=== PATIENT | female | born 1965 | race Caucasian/White ===

== ENCOUNTER 2016-12-10 09:23 | Observation (INO) | payer OTHER ==
[~2016-12-10] VITALS: Ht 177.8 cm; Wt 91.0 kg
[2016-12-10] VITALS (10 sets, daily range): BP systolic 121–145; BP diastolic 72–85; PULSE 79–110; RESP 16–24; TEMP 97.8–98.2; O2SAT 94–99
[~2016-12-10 09:23] MED LIST: CYMB60CA PO; HYDR-3533 PO; IBUP-232 PO; LASI20TA PO
[2016-12-10] MEDS ORDERED: FURO20TA PO (10:00)
[2016-12-10] MEDS ORDERED: SODIUM CHLORIDE 0.9% FLUSH 5 ML FLUSH IVF PRN ×2 (10:00→14:45)
[2016-12-10] MEDS ORDERED: MOBI7.5T PO (10:00)
[2016-12-10] MEDS ORDERED: TRAM50TA PO (10:00)
[2016-12-10] MEDS ORDERED: LISI-515 PO (10:00)
[2016-12-10] MEDS ORDERED: DULOXETINE HCL PO (10:00)
[2016-12-10] MEDS ORDERED: diphenhydrAMINE HCL 50 MG/ML VIAL IV PUSH ONE (10:00)
[2016-12-10] MEDS ORDERED: ESTR1TAB PO (10:00)
[2016-12-10] MEDS ORDERED: methylPREDNISolone SOD SUCC 40 MG/1 ML VIAL IV PUSH STA (10:00)
--- NOTE | 2016-12-10 10:00 | PD ---
HPI Chief Complaint: Chest Pain Time Seen by Provider: 09:43 Travel History International Travel<30 days: No Contact w/Intl Traveler<30days: No Traveled to known affect area: No History of Present Illness HPI 51yo F with PMH of ascending aortic aneurysm (follows with Dr. Corral cardiothoracic surgeon) presents to the ED with c/o chest tightness since 3am today. States it is intermittent, pressure like, lasts minutes, nonradiating. No exacerbating or alleviating factor. Associated with sob. Pt has not follow up with a medical scribe for over a year. Denies any fever, cough, vomiting, abdominal pain, focal weakness or numbness. PFSH Past Medical History AAA: Yes (4.25 CM AAA- DR. LU - [employer] TE[employer]ER) Asthma: No Blood Disorders: No Anxiety: No Depression: No Heart Rhythm Problems: No Cancer: No Cardiac Catheterization: No Cardiovascular Problems: Yes (AAA) High Cholesterol: No Chemotherapy: No Chest Pain: Yes Congestive Heart Failure: No COPD: No Diabetes: No Diminished Hearing: No Endocrine: No Genitourinary: No Hypertension: Yes Immune Disorder: No Musculoskeletal: Yes (SPINAL COMPRESSION FRACTURES) Neurologic: No Psychiatric: No Reproductive: Yes (c section/hysterectomy) Respiratory: No Immunizations Current: Yes Myocardial Infarction: No Radiation Therapy: No Sleep Apnea: No Thyroid Disease: No Influenza Vaccination: No ?: Not LMP: YEARS AGO Menopausal: Yes : 2 Para: 2 Miscarriage: 0 : 0 Past Surgical History Section: Yes Coronary Artery Bypass Graft: No Gynecologic Surgery: Yes Hysterectomy: Yes Other Surgery: Yes (BILATERAL BREAST IMPLANTS 1990) Social History Alcohol Use: No Tobacco Use: No Substance Use: No Allergies-Medications (Allergen,Severity, Reaction): Coded Allergies: Iodine (Verified Allergy, Intermediate, RASH, ITCHING, 12/10/16) Reported Meds & Prescriptions Reported Meds & Active Scripts Active Reported Mobic (Meloxicam) 7.5 Mg Tab 7.5 Mg PO DAILY Tramadol (Tramadol HCl) 50 Mg Tab 50 Mg PO DAILY PRN Estradiol 1 Mg Tab 1 Mg PO DAILY Furosemide 20 Mg Tab 20 Mg PO DAILY Lisinopril 20 Mg Tab 20 Mg PO DAILY [Duloxetine Hcl] 60 Mg PO DAILY Review of Systems Except as stated in HPI: all other systems reviewed are Neg Physical Exam Narrative GEN: 57yo F not in distress. SKIN: Warm and dry. HEAD: Normocephalic, atraumatic. CV: S1, S2. Lungs: CTA B/l, equal breath sounds. Abd: soft, NT/ND. No rebound tenderness or guarding. BACK: No midline ttp. EXT: No edema, calf tenderness. NEURO: No focal neurologic deficits. Data Data Last Documented VS Vital Signs Date Time Temp Pulse Resp B/P Pulse Ox O2 Delivery O2 Flow Rate FiO2 12/10/16 13:25 100 16 121/75 98 Room Air 12/10/16 09:50 98.0 Orders Basic Metabolic Panel (Bmp) (12/10/16 09:54) Ckmb (Isoenzyme) Profile (12/10/16 09:54) Complete Blood Count With Diff (12/10/16 09:54) Magnesium (Mg) (12/10/16 09:54) Prothrombin Time / Inr (Pt) (12/10/16 09:54) Act Partial Throm Time (Ptt) (12/10/16 09:54) Troponin I (12/10/16 09:54) Chest, Single Ap (12/10/16 09:54) Ecg Monitoring (12/10/16 09:54) Bilateral Bp Monitoring (12/10/16 09:54) Iv Access Insert/Monitor (12/10/16 09:54) Oximetry (12/10/16 09:54) Oxygen Administration (12/10/16 09:54) Sodium Chloride 0.9% Flush (Ns Flush) (12/10/16 10:00) Methylprednisolone So Succ Inj (Solumedr (12/10/16 10:00) Diphenhydramine Inj (Benadryl Inj) (12/10/16 10:00) CKMB (12/10/16 10:08) CKMB% (12/10/16 10:08) Electrocardiogram (12/10/16 09:43) Cta Thor Abd Aorta W Iv C W3d (12/10/16 12:20) Iohexol 350 Inj (Omnipaque 350 Inj) (12/10/16 12:58) Aspirin (Aspirin) (12/10/16 14:30) Nitroglycerin Sl (Nitrostat Sl) (12/10/16 14:30) Admit Order (Ed Use Only) (12/10/16 14:22) Labs Laboratory Tests Test 12/10/16 10:08 White Blood Count 5.7 TH/MM3 Red Blood Count 4.20 MIL/MM3 Hemoglobin 13.3 GM/DL Hematocrit 38.1 % Mean Corpuscular Volume 90.6 FL Mean Corpuscular Hemoglobin 31.6 PG Mean Corpuscular Hemoglobin 34.9 % Concent Red Cell Distribution Width 12.6 % Platelet Count 213 TH/MM3 Mean Platelet Volume 8.4 FL Neutrophils (%) (Auto) 62.6 % Lymphocytes (%) (Auto) 28.4 % Monocytes (%) (Auto) 7.5 % Eosinophils (%) (Auto) 0.8 % Basophils (%) (Auto) 0.7 % Neutrophils # (Auto) 3.6 TH/MM3 Lymphocytes # (Auto) 1.6 TH/MM3 Monocytes # (Auto) 0.4 TH/MM3 Eosinophils # (Auto) 0.0 TH/MM3 Basophils # (Auto) 0.0 TH/MM3 CBC Comment DIFF FINAL Differential Comment Prothrombin Time 10.0 SEC Prothromb Time International 0.9 RATIO Ratio Activated Partial 27.1 SEC Thromboplast Time Sodium Level 138 MEQ/L Potassium Level 4.0 MEQ/L Chloride Level 103 MEQ/L Carbon Dioxide Level 29.0 MEQ/L Anion Gap 6 MEQ/L Blood Urea Nitrogen 12 MG/DL Creatinine 0.86 MG/DL Estimat Glomerular Filtration 70 ML/MIN Rate Random Glucose 103 MG/DL Calcium Level 9.4 MG/DL Magnesium Level 2.1 MG/DL Total Creatine Kinase 134 U/L Creatine Kinase MB 2.0 NG/ML Troponin I LESS THAN 0.02 NG/ML [facility] Medical Decision Making Medical Screen Exam Complete: Yes Emergency Medical Condition: Yes Interpretation(s) EKG: NSR 96bpm. Normal axis. No ST segment elevation or depression. Differential Diagnosis ACS vs. dissection vs. GERD Narrative Course 51yo F with history of ascending aneurysm here with chest pain. States she gets chest pain often but this does not feel like her GERD. She follows with Dr. Clark but does not have a medical scribe that she follows with. Labs reviewed, no leukocytosis. H/H stable. Troponin negative. CMP unremarkable. CXR showed hypoaeration diminished inspiratory effort. Pt had hives with contrast before so she was premedicated with solumedrol and benadryl. CTA showed mildly prominent ascending thoracic aortic diameter 4.2cm. No dissection. Pt given aspirin and sublingual nitro for chest pain. Pt states it was 4.2cm before so no change. No reactions after CT angio. Will admit pt to chest pain center for serial EKG and cardiac enzyme for chest pain. Diagnosis Primary Impression: Chest pain, atypical Admitting Information Admitting Physician Requests: Observation Bertha Gibbs DO Dec 10, 2016 10:00
[2016-12-10 10:26] LABS: AUTOMATED NEUTROPHIL # 3.6 TH/MM3 (1.8-7.7); BASOPHIL % 0.7 % (0.0-2.0); EOSINOPHIL % 0.8 % (0.0-4.0); HEMATOCRIT 38.1 % (35.0-46.0); HEMO FLAGS DIFF FINAL; LYMPH % 28.4 % (9.0-44.0); LYMPHOCYTE # 1.6 TH/MM3 (1.0-4.8); MEAN CELL VOLUME 90.6 FL (80.0-100.0); MEAN CORPUSCULAR HEMOGLOBIN 31.6 PG (27.0-34.0); MEAN CORPUSCULAR HGB CONC 34.9 % (32.0-36.0); MONO % 7.5 % (0.0-8.0); NEUT % 62.6 % (16.0-70.0); PLATELET COUNT 213 TH/MM3 (150-450); RED CELL DISTRIBUTION WIDTH 12.6 % (11.6-17.2); WHITE BLOOD COUNT 5.7 TH/MM3 (4.0-11.0)
[2016-12-10 10:33] LABS: APTT (PATIENT) 27.1 SEC (24.3-30.1); INTERNATIONAL NORMALIZED RATIO 0.9 RATIO
--- NOTE | 2016-12-10 10:33 | RADRPT ---
EXAM DATE/TIME: 12/10/2016 10:00 [facility] COMPARISON: No previous studies available for comparison. INDICATIONS : Chest pain. MEDICAL HISTORY : None. SURGICAL HISTORY : None. ENCOUNTER: Initial ACUITY: 1 day PAIN SCORE: 8/10 LOCATION: Left upper chest FINDINGS: A single view of the chest demonstrates the lungs to be hypo-aerated with diminished inspiratory effo rt. without evidence of mass, infiltrate or effusion. The cardiomediastinal contours are unremarkabl e. Osseous structures are intact. CONCLUSION: Hypoaeration diminished inspiratory effort. Willie Elizondo MD on December 10, 2016 at 10:31 Board Certified Radiologist. This report was verified electronically.
[2016-12-10 10:37] LABS: ANION GAP 6 MEQ/L (5-15); BLOOD UREA NITROGEN 12 MG/DL (7-18); CHLORIDE 103 MEQ/L (98-107); GLOMERULAR FILTRATION RATE 70 ML/MIN (>89); MAGNESIUM 2.1 MG/DL (1.5-2.5); SODIUM (NA) 138 MEQ/L (136-145)
[2016-12-10 10:41] LABS: CREATINE KINASE 134 U/L (26-192)
[2016-12-10] MEDS ORDERED: IOHEXOL 350 MG/ML 10 ML VIAL (for RAD DIAG) IV ONE (12:58)
--- NOTE | 2016-12-10 13:50 | EKG ---
Date Performed: 12/10/2016 Time Performed: 09:43:30 PTAGE: 51 years EKG: Sinus rhythm NONSPECIFIC ST & T-WAVE ABNORMALITY BORDERLINE ECG PREVIOUS TRACING : 03/12/2012 14.53 No significant change from previous tracing noted. DOCTOR: Carmelo Alvarado Interpretating Date/Time 12/10/2016 13:48:38
--- NOTE | 2016-12-10 14:04 | RADRPT ---
EXAM DATE/TIME: 12/10/2016 12:53 [facility] COMPARISON: No previous studies available for comparison. INDICATIONS : Chest pain; known aneurysm. IV CONTRAST: 75 cc Omnipaque 350 (iohexol) IV RADIATION DOSE: 17.10 CTDIvol (mGy) MEDICAL HISTORY : Cardiovascular disease. Hypertension. Aneurysm. SURGICAL HISTORY : Hysterectomy. ENCOUNTER: Initial ACUITY: 1 day PAIN SCALE: 5/10 LOCATION: Bilateral chest TECHNIQUE: Volumetric scanning was performed using a multi-row detector CT scanner. The data was post processed with a variety of visualization algorithms including full volume maximum intensity pr ojection, multi-planar sliding thin slab reformation, curved planar reformation, and surface renderin g techniques. Using automated exposure control and adjustment of the mA and/or kV according to patie nt size, radiation dose was kept as low as reasonably achievable to obtain optimal diagnostic quality images. FINDINGS: LUNGS: Minimal focal airspace disease is identified in the lingula. There is no other consolidati on or evidence of pneumothorax. No concerning pulmonary nodule is visualized. No pleural fluid is p resent. MEDIASTINUM: No abnormally enlarged lymph nodes by CT criteria. No axillary or hilar abnormalitie s are identified. ABDOMEN: The liver and spleen are free of focal defects. The gallbladder and pancreas demonstrate no abnormality. The adrenal glands are normal. The kidneys demonstrate no evidence of solid renal ma ss or hydronephrosis. No free fluid or abdominal masses are identified. No para-aortic adenopathy is seen. PELVIS: No evidence of free fluid or pelvic mass. No abnormally enlarged inguinal or retroperiton eal lymph nodes are present. The bladder is unremarkable. THORACIC AORTA: The ascending thoracic aorta measures 4.2 cm with normal branching of the great vessels off the arch. There is no evidence of dissection. ABDOMINAL AORTA: The aorta is normal in caliber without aneurysm or dissection. The renal arteri es are patent bilaterally. The proximal celiac and superior mesenteric arteries are patent and fany l in diameter. PELVIC VESSELS: The internal iliac and external iliac vessels are patent without aneurysm or sten osis. CONCLUSION: Mildly prominent ascending thoracic aortic diameter of 4.2 cm. No definite evidence of aneurysm or dissection involving the thoracic or abdominal aorta. Minimal airspace disease lingula. Otherwise unremarkable exam. Merlin Mcbride MD on December 10, 2016 at 13:37 Board Certified Radiologist. This report was verified electronically.
[2016-12-10] MEDS ORDERED: NITROGLYCERIN 0.4 MG SL 25 TABS/BTL SL PRN (14:30)
[2016-12-10] MEDS ORDERED: ASPIRIN 325 MG TAB PO ONE (14:30)
[2016-12-10] MEDS ORDERED: ONDANSETRON HCL 4 MG/2 ML VIAL IV PRN (14:45)
[2016-12-10] MEDS ORDERED: ACETAMINOPHEN/HYDROcodone 325 MG/7.5 MG TAB PO PRN (14:45)
[2016-12-10] MEDS ORDERED: ACETAMINOPHEN 500 MG CPLT PO PRN (14:45)
[2016-12-10] MEDS ORDERED: ALPRAZolam 0.25 MG TAB PO PRN (14:45)
[2016-12-10 15:31] LABS: CREATINE KINASE 117 U/L (26-192)
[2016-12-10 15:44] LABS: CKMB 1.1 NG/ML (0.5-3.6)
[2016-12-10 18:38] LABS: CREATINE KINASE 110 U/L (26-192)
[2016-12-10 18:50] LABS: CKMB 1.2 NG/ML (0.5-3.6)
[2016-12-10] MEDS: SODIUM CHLORIDE 0.9% FLUSH 5 ML FLUSH IVF SCH (20:22)
[2016-12-11] VITALS: BP 128/84; PULSE 88; RESP 22; TEMP 98.9; O2SAT 98
[2016-12-11 01:54] VITALS: PULSE 65
[2016-12-11 04:00] VITALS: BP 122/68; PULSE 78; RESP 18; TEMP 98.8; O2SAT 98
[2016-12-11 07:18] VITALS: BP 108/70; PULSE 74; RESP 17; TEMP 98; O2SAT 97
[2016-12-11] MEDS: SODIUM CHLORIDE 0.9% FLUSH 5 ML FLUSH IVF SCH (07:55)
[2016-12-11 08:05] VITALS: PULSE 70
--- NOTE | 2016-12-11 08:57 | MH ---
cc: LILIBETH SENA MD DATE OF ADMISSION 12/10/2016 DATE OF 1965 CHIEF COMPLAINT Chest pain. HISTORY OF PRESENT ILLNESS This is a 51-year-old female that presents to the ED with a complaint of a tightness in the center her chest. It began this morning while she was at a home health client's home. She had just arrived there. It lasted one or two minutes but continued to recur over the next 1/2 hour. She was a little short of breath. No nausea, diaphoresis. Denies history of coronary artery disease but does have a history of ascending aortic aneurysm that last year was measured about 4.2 cm. She had a heart catheterization in [address] Esqueda that had normal coronary arteries. This was obtained after having an abnormal stress test. She saw another cut out press operator a few years ago for followup. She recently saw Dr. Clark for cardiovascular thoracic surgery to continue to follow up for her aorta. She states that she was being scheduled to have an outpatient CT to evaluate the aorta. PAST MEDICAL HISTORY 1. Hypertension. 2. Hyperlipidemia. 3. Hiatal hernia. 4. Aortic aneurysm. Denies diabetes and CAD. FAMILY HISTORY Father had an myocardial infarction in his 50s and had a stents. SOCIAL HISTORY smoker and has alcohol . She works in [employer]. She is . PAST SURGICAL HISTORY 1. C sections. 2. Hysterectomy. 3. Heart catheterization with intervention. 4. And breast augmentation. ALLERGIES IODINE CAUSING RASH AND ITCHING. CURRENT MEDICATIONS Includes: 1. Mobic. 2. Tramadol. 3. Estradiol. 4. Furosemide. 5. Lisinopril. 6. Duloxetin. REVIEW OF SYSTEMS GENERAL: Denies fever or chills. Denies recent illnesses. HEENT: Denies headache, earache, sore throat, difficulty swallowing. CARDIOVASCULAR: Describes the discomfort as mentioned above. Denies diaphoresis. Denies sensation of heart beating rapidly or irregularly. No syncope. RESPIRATORY: Had some mild shortness of breath. No inspirational chest discomfort. Denies coughing, wheezing or hemoptysis. GASTROINTESTINAL: Denies nausea, vomiting, diarrhea, abdominal pain or blood in the stool. MUSCULOSKELETAL: Denies joint pain or edema. Denies calf pain or edema. NEUROVASCULAR: Denies headache or dizziness. ENDOCRINE: Denies polyuria or polydipsia. HEMATOLOGIC: Denies bruising. SKIN: Denies rash or itching. PHYSICAL EXAMINATION VITAL SIGNS: In the emergency department initially included a blood pressure of 145/81, heart rate 95, respiratory rate 24, pulse oximetry 99% on room air. She is afebrile. Most recent vital signs include a blood pressure of 121/75, heart rate 100, respiratory rate 16, pulse oximetry is 98% on room air. GENERAL: The patient is seen in the emergency room in no apparent distress. She is very pleasant. She speaks in clear and complete sentences. HEENT: Head is atraumatic, normocephalic. NECK: Supple without lymphadenopathy. Trachea is midline. No JVD or carotid bruits. CARDIOVASCULAR: Regular rate and rhythm without murmurs, rubs, or gallops. LUNGS: Clear to auscultation bilaterally. No wheezes, rhonchi or rales. No use of accessory muscles. No reproducible chest wall discomfort. ABDOMEN: Nontender. Bowel sounds are normal. Abdomen is soft. MUSCULOSKELETAL: The patient is moving upper and lower extremities freely. No joint tenderness or edema. No calf tenderness or edema. No Raymond sign. Strong pulses in the upper and lower extremities. NEUROVASCULAR: The patient is alert and oriented. Cranial nerves II through XII are grossly intact. No focal deficits. Speech is clear. SKIN: No rashes. Turgor is normal. LABORATORY DATA CBC is unremarkable. Coagulation studies are unremarkable. Basic metabolic profile essentially is unremarkable. GFR is decreased to 70. First set of cardiac enzymes are normal. IMAGING Single view chest x-ray read by radiologist as hyperaeration, diminished inspiratory effort. No evidence of mass, infiltrate or effusion. CTA of the thoracic and abdominal aorta. This was read by radiologist as mildly prominent ascending thoracic aorta measuring 4.2 cm. No definite evidence of aneurysm or dissection involving the thoracic or abdominal aorta. Minimal airspace disease lingula. Otherwise unremarkable examination. ELECTROCARDIOGRAMS Initial EKG sinus rhythm without significant ST-segment depression or elevations. ASSESSMENT AND PLAN 1. Chest pain: The patient will continue to have cardiac enzymes and EKGs for ruling out purposes. She will be seen by Dr. Sena of cardiology in the chest pain center and will spend the evening in the chest pain center for further rule out. If she does rule out then she will proceed with stress testing in the morning. This will be confirmed after Dr. Sena evaluates this patient. 2. Hypertension: Continue current medications. 3. Hyperlipidemia: The patient is currently not taking a statin medication for this. She should discuss with her physician. 4. Stated history of aortic aneurysm: She states that her ascending aorta number was 4.2 last year. The radiologist read the CT scan as mildly prominent ascending thoracic aorta diameter of 4.2 cm. No definite evidence of aneurysm or dissection involving thoracic or abdominal aorta. Minimal airspace disease lingula. The patient stable at this time. She is agreeable to this plan. DICTATED BY: MEHUL Armstrong Ray Stein/AG /3:05 PM /12:17 PM
[2016-12-11] MEDS ORDERED: ASPIRIN 325 MG TAB PO SCH (09:00)
[2016-12-11] MEDS ORDERED: DULoxetine HCl DR 60 MG CAP PO SCH (09:00)
[2016-12-11] MEDS ORDERED: FUROSEMIDE 20 MG TAB PO SCH (09:00)
[2016-12-11] MEDS ORDERED: PANTOPRAZOLE SOD 40 MG DELAYED RELEASE TAB PO SCH (09:00)
[2016-12-11] MEDS ORDERED: LISINOPRIL 20 MG TAB PO SCH (09:00)
[2016-12-11] MEDS ORDERED: REGADENOSON INJ 0.4 MG/5 ML SYR ONE (10:44)
[2016-12-11 11:15] VITALS: BP 116/78; PULSE 92; RESP 18; TEMP 98.3; O2SAT 99
--- NOTE | 2016-12-11 11:56 | RADRPT ---
EXAM DATE/TIME: 12/11/2016 10:17 [facility] COMPARISON: No previous studies available for comparison. INDICATIONS : Susbternal chest pain. Angina. DOSE: 25.4 mCi Tc99m Myoview at stress. 8.7 mCi Tc99m Myoview at rest. 0.4 mg Lexiscan STRESS SYMPTOMS: Dyspnea. EJECTION FRACTION: 61% MEDICAL HISTORY : Hypertension. Ascending aortic aneurysm. SURGICAL HISTORY : section. Hysterectomy. Breast implants. ENCOUNTER: Initial ACUITY: 1 day PAIN SCALE: 6/10 LOCATION: Substernal chest TECHNIQUE: The patient underwent pharmacologic stress with infusion of prescribed dose. Continuous ECG tracing was monitored during stress. Gated SPECT imaging was performed after stress and conventional SPECT i maging was performed at rest. The examination was performed on a SPECT/CT scanner, both attenuation and non-corrected datasets were reviewed. FINDINGS: DISTRIBUTION: The maximum perfused segment at stress is in the inferior wall. PERFUSION STUDY: The pattern of perfusion at stress is within normal limits. GATED STUDY: There is intact wall motion and thickening without hypokinetic or dyskinetic segments. CONCLUSION: 1. Unremarkable myocardial perfusion scan. RISK CATEGORY: Low (<1% Annual Mortality Rate) Lenard Rodriguez MD on December 11, 2016 at 11:52 Board Certified Radiologist. This report was verified electronically.
--- NOTE | 2016-12-11 12:04 | HHI.DCPOC ---
Discharge Care Plan Diagnosis: (1) Chest pain, atypical (2) Hypertension (3) Hx of aortic aneurysm (4) Hyperlipidemia Goals to Promote Your Health * To prevent worsening of your condition and complications * To maintain your health at the optimal level Directions to Meet Your Goals Take your medications as prescribed Follow your dietary instruction Follow activity as directed Keep your appointments as scheduled Take your immunizations and boosters as scheduled If your symptoms worsen call your PCP, if no PCP go to Urgent Care Center or Emergency Room Smoking is Dangerous to Your Health. Avoid second hand smoke Call the 24-hour hour crisis hotline for domestic abuse at Edgardo Storey Dec 11, 2016 12:04
--- NOTE | 2016-12-11 15:38 | EKG ---
Date Performed: 12/10/2016 Time Performed: 17:59:56 PTAGE: 51 years EKG: Sinus rhythm NONSPECIFIC T-WAVE ABNORMALITY BORDERLINE ECG Since PREVIOUS TRACING , no significant change noted PREVIOUS TRACIN12/10/2016 15.05 DOCTOR: Catrachita Ruvalcaba Interpretating Date/Time 12/11/2016 15:37:06
--- NOTE | 2016-12-11 15:38 | EKG ---
Date Performed: 12/10/2016 Time Performed: 15:05:04 PTAGE: 51 years EKG: Sinus rhythm LOW QRS VOLTAGE IN PRECORDIAL LEADS NONSPECIFIC T-WAVE ABNORMALITY BORDERLINE ECG Since PREVIOUS TRACING , no significant change noted PREVIOUS TRACIN12/10/2016 09.43 DOCTOR: Catrachita Rvualcaba Interpretating Date/Time 12/11/2016 15:36:33
--- NOTE | 2016-12-11 15:39 | TR ---
Date Performed: 12/11/2016 Time Performed: 10:48:47 DOCTOR: Catrachita Ruvalcaba DRUG LIST: CLINICAL HISTORY: CHEST PAIN REASON FOR TEST: CHEST PAIN REASON FOR ENDING: OBSERVATION: CONCLUSION: Lexiscan stress test was performed under standard four minute protocol. Radionuclid e was injected one minute prior to ending the test. No electrocardiographic abormalities were present to suggest ischemia. Nuclear imaging and interpretation are pending. COMMENTS:
== END 2016-12-11 12:46 | disposition home or self-care (01) ==
LOC: NEPE 09:23 → NEDA 14:23 → NEPGCP 15:38
PROVIDERS: ADMIT Internal Medicine Cardiovascular Disease; ATTEND Internal Medicine Cardiovascular Disease
DX: R07.89 Other chest pain (principal); I10 Essential (primary) hypertension; E78.5 Hyperlipidemia, unspecified; R94.31 Abnormal electrocardiogram [ECG] [EKG]; F17.200 Nicotine dependence, unspecified, uncomplicated; Z86.79 Personal history of other diseases of the circulatory system; Z98.82 Breast implant status
CPT/HCPCS: 71010; 71275; 74174; 78452; 80048; 82550; 82552; 83735; 84484; 85025; 85610; 85730; 93005; 93017; 96374; 96375; 99285; A9502; G0378; J1200; J2785; J2920; Q9967